=== PATIENT | female | born 1990 | race Caucasian/White ===

== ENCOUNTER 2025-04-23 16:22 | Observation (INO) | payer OTHER ==
[~2025-04-23] VITALS: Ht 165.1 cm; Wt 77.1 kg
[2025-04-23 17:36] LABS: BASOPHILS ABSOLUTE AUTO 0.06 K/mm3 (0.00-0.23); BASOPHILS PERCENT AUTO 1 % (0-2); EOSINOPHILS ABSOLUTE AUTO 0.19 K/mm3 (0.00-0.68); EOSINOPHILS PERCENT AUTO 3 % (0-6); Hematocrit 37.1 % (33.0-51.0); Hemoglobin 12.8 g/dL (11.5-16.0); IMMATURE GRAN ABSOLUTE AUTO 0.01 K/mm3 (0.00-0.10); IMMATURE GRAN PERCENT AUTO 0 % (0-1); LYMPHOCYTES ABSOLUTE AUTO 2.15 K/mm3 (0.84-5.20); LYMPHOCYTES PERCENT AUTO 32 % (21-46); MONOCYTES ABSOLUTE AUTO 0.56 K/mm3 (0.16-1.47); MONOCYTES PERCENT AUTO 8 % (4-13); Mean Corpuscular HGB 30.8 pg (26.0-34.0); Mean Corpuscular HGB Conc 34.5 g/dL (31.5-36.5); Mean Corpuscular Volume 89 fL (80-100); Mean Platelet Volume 10.3 fL (9.1-12.4); NEUTROPHILS ABSOLUTE AUTO 3.68 K/mm3 (1.96-9.15); NEUTROPHILS PERCENT AUTO 55 % (41-73); Platelet Count 235 K/mm3 (150-400); RDW Coefficient Variation 11.7 % (11.7-14.2); RDW Standard Deviation 38.3 fL (35.1-46.3); Red Blood Cell Count 4.15 M/mm3 (3.80-5.20); White Blood Cell Count 6.65 K/mm3 (4.00-11.30)
[2025-04-23 17:57] LABS: Ethanol (Alcohol), Blood, Med <3 mg/dL; Salicylate <1.7 mg/dL (2.8-20.0)
[2025-04-23 17:58] LABS: Alanine Aminotransfer (ALT/SGP 23 U/L (12-78); Albumin/Globulin Ratio 1.1 (0.8-1.8); Alk Phos 73 U/L (50-136); Anion Gap 9 mmol/L (3-11); Aspartate Aminotrans (AST/SGOT 16 U/L (12-37); Bilirubin, Total 0.3 mg/dL (0.1-1.0); Blood Urea Nitrogen 8 mg/dL (8-24); Bun/Creatinine Ratio 12.3 (12.0-20.0); CO2, Blood 26 mmol/L (21-32); Chloride, Blood 107 mmol/L (98-108); Creatinine, Blood 0.65 mg/dL (0.40-1.00); Globulin, Blood 3.6 g/dL (2.2-4.0); Glomerular Filtration Rate 120 (60-); Glucose, Blood 101 mg/dL (70-99); Potassium, Blood 3.6 mmol/L (3.5-5.5); Sodium, Blood 138 mmol/L (136-145); Total Protein, Blood 7.6 g/dL (6.4-8.2)
[2025-04-23 17:59] LABS: Acetaminophen, Random <2.0 ug/mL (10.0-30.0)
[2025-04-23] MEDS ORDERED: ZIPRASIDONE HCL80 MG PO (19:50)
[2025-04-23] MEDS ORDERED: OXCARBAZEPINE PO (19:50)
[2025-04-23] MEDS ORDERED: ESCITALOPRAM OXA5 MG PO (19:51)
[2025-04-23] MEDS ORDERED: KLONOPIN0.5 M9 PO (19:51)
[2025-04-23] MEDS ORDERED: LORA2 PO (19:53)
[2025-04-23 19:58] LABS: Source, Urine Voided
[2025-04-23 20:01] LABS: Bilirubin, Urine Neg (Neg); Blood, Urine 3+ (Neg); Glucose Qualitative, Urine Neg (Neg); Ketones, Urine Neg (Neg); Leukocyte Esterase, Urine 1+ (Neg); Nitrite, Urine Neg (Neg); Protein, Urine 1+ (Neg); Urobilinogen, Urine NORM (Normal)
[2025-04-23 20:02] LABS: Appearance, Urine Clear (Clear); Color, Urine Yellow (P-Yellow)
[2025-04-23 20:08] LABS: Bacteria Mod /hpf; Squamous Epithelial Cells Few /hpf (Few)
[2025-04-23 20:20] LABS: U Amphetamine Screen Not Detected; U Barbituate Screen Not Detected; U Benzodiazapine Screen DETECTED; U Buprenorphine Screen Not Detected; U Cannabinoids Screen DETECTED; U Cocaine Screen Not Detected; U Methadone Screen Not Detected; U Methamphetamine Screen Not Detected; U Opiates Screen Not Detected; U Oxycodone Screen Not Detected; U Phencyclidine Screen Not Detected
[2025-04-23] MEDS ORDERED: Ziprasidone HCL 20 MG Cap PO SCH (21:00)
[2025-04-23] MEDS ORDERED: ClonazePAM 1 MG Tab PO SCH (21:00)
[2025-04-23] MEDS ORDERED: OXcarbazepine 300 MG Tab PO SCH (21:00)
[2025-04-23] MEDS ORDERED: Citalopram Hydrobromide 20 MG Tab PO SCH (21:00)
== END 2025-04-24 13:34 | disposition other institution (70) ==
LOC: ER 16:22 → EOR 16:23
PROVIDERS: Student in an Organized Health Care Education/Training Program; ADMIT Student in an Organized Health Care Education/Training Program
DX: R45.851 Suicidal ideations (principal); R45.850 Homicidal ideations; F17.290 Nicotine dependence, other tobacco product, uncomplicated; Z88.8 Allergy status to other drugs, medicaments and biological substances
CPT/HCPCS: 80053; 80320; 81001; 81025; 85025; 87086; 93005; 93010; 99285-25; A9270; G0378; G0480

== ENCOUNTER 2025-04-24 10:20 | Inpatient (IN) | payer OTHER ==
[~2025-04-24] VITALS: Ht 165.1 cm; Wt 76.9 kg
[~2025-04-24 10:20] MED LIST: ESCITALOPRAM OXA5 MG PO; KLONOPIN0.5 M9 PO; LORA2 PO; OXCARBAZEPINE PO; ZIPRASIDONE HCL80 MG PO
[2025-04-24] MEDS ORDERED: TraZODone HCl 50 MG Tab PO PRN (13:10)
[2025-04-24] MEDS ORDERED: OLANZapine ODT 10 MG Tab MM PRN (13:10)
[2025-04-24] MEDS ORDERED: Ondansetron 4 MG SoluTab MM PRN (13:10)
[2025-04-24] MEDS ORDERED: Polyethylene Glycol 3350 17 gm PO PRN (13:10)
[2025-04-24] MEDS ORDERED: Acetaminophen 325 MG TABLET PO PRN (13:15)
[2025-04-24] MEDS ORDERED: LORazepam 2 MG/ML 1ML Injection IM PRN (13:15)
[2025-04-24] MEDS ORDERED: Aluminum Hydroxide 320MG/5ML 473 ML PO PRN (13:15)
[2025-04-24] MEDS ORDERED: Melatonin 3 MG Tab PO PRN (13:15)
[2025-04-24] MEDS ORDERED: Calcium Carbonate 500 MG Tab Chew PO PRN (13:15)
[2025-04-24] MEDS ORDERED: DiphenhydrAMINE HCl 50 MG Cap PO PRN (13:15)
[2025-04-24] MEDS ORDERED: Haloperidol Lactate Inj. 5 MG/ML Injection IM PRN (13:20)
[2025-04-24] MEDS ORDERED: Ibuprofen 600 MG Tab PO PRN (13:20)
[2025-04-24] MEDS ORDERED: LORazepam 2 MG Tab PO PRN (13:20)
[2025-04-24] MEDS ORDERED: DiphenhydrAMINE HCl 50 MG/ML 1ML Vial IM PRN (13:20)
[2025-04-24] MEDS ORDERED: Haloperidol 5 MG Tab PO PRN (13:20)
[2025-04-24] MEDS ORDERED: HydrOXYzine Pamoate 50 MG Cap PO PRN (13:20)
[2025-04-24 13:51] VITALS: BP 109/59
[2025-04-24 14:52] VITALS: BP 109/59
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
[2025-04-24] MEDS ORDERED: Ziprasidone HCL 20 MG Cap PO SCH (17:12)
[2025-04-24 20:20] VITALS: BP 124/81
[2025-04-24] MEDS ORDERED: ClonazePAM 1 MG Tab PO SCH (21:00)
[2025-04-24] MEDS ORDERED: Citalopram Hydrobromide 10 MG TAB PO SCH (21:00)
[2025-04-24] MEDS ORDERED: OXcarbazepine 300 MG Tab PO SCH (21:00)
--- NOTE | 2025-04-25 04:26 | NUR ---
A&OX4. patient did not come out of her room during the evening or night hours. When asked about current suicidal or homicidal ideation, patient just smiled and denied SI,HI or AVTH. We talked about her medications, and she did seem to have a fair amount of knowledge about several of them. Will continue close monitoring every 15 minutes for safety and comfort
[2025-04-25 07:35] LABS: CHOL/HDL RATIO 5.2; Cholesterol 203 mg/dL (50-200); HDL Cholesterol 39 mg/dL (>39); LDL/HDL RATIO 3.3; Low Density Lipoprotein Chol 127 mg/dL (0-110); Triglycerides 183 mg/dL (30-140); Very Low Density Lipoprot Chol 36 mg/dL (6-28)
[2025-04-25 08:53] VITALS: BP 120/81
[2025-04-25] MEDS ORDERED: Multivitamins 1 Tab PO SCH (09:00)
--- NOTE | 2025-04-25 18:22 | NUR ---
SHIFT SUMMARY PT A/O X4; PLEASANT AND COOPERATIVE WITH CARE. SHE DENIES SI, HI, AND HALLUCINATIONS. HER AFFECT IS INCONGRUENT WITH HER STATED MOOD. PT SMILES OFTEN AND APPEAR CHEERFUL, BUT REPORTS THAT SHE IS DEPRESSED AND ANXIOUS. SHE ATTENDED ALL GROUPS AND MEALS.
[2025-04-25 19:18] VITALS: BP 120/77
--- NOTE | 2025-04-26 04:20 | NUR ---
patient is alert and oriented times four. She stayed in her room prior to HS last night and did not come out for snack. She denied SI,HI and AVH during evening assesment. After patient had smiled and told me she was feeling good, she asked for something for anxiety as she was actually feeling very anxious. As the patient changed from looking very happy to very anxious, Zyprexa was given as she states she is unable to tolerate Vistaril. Will continue close monitoring every 15 minutes for safety and comfort.
--- NOTE | 2025-04-26 17:53 | NUR ---
SHIFT SUMMARY PT A/O X4; DENIES SI, HI, AND HALLUCINATIONS. SHE REPORTS THAT HER INTRUSIVE THOUGHTS HAVE BEEN IMPROVING QUITE A BIT. HER AFFECT REMAINS INCONGRUENT TO HER STATED MOOD. PT IS CONCERNED ABOUT WHEN SHE WILL BE ABLE TO DISCHARGE AND REQUESTED TO LEAVE THIS SHIFT. PROVIDER NOTIFIED. PT WENT TO GO TAKE A NAP AND HAS NOT MENTIONED LEAVING SINCE. SHE ATTENDED ALL GROUPS AND MEALS THIS SHIFT.
[2025-04-26 19:35] VITALS: BP 119/71
--- NOTE | 2025-04-27 04:12 | NUR ---
SHIFT SUMMARY PT LAYING IN BED AWAKE AT START OF SHIFT. SHE DENIES ANY SI, HI, THOUGHTS OF SELF HARM OR HALLUCINATIONS. PT REPORTS AND APPEARS TO BE SAD AND DEPRESSED AND SEEMED TO HAVE A NERVOUS LAUGH WHEN STATING HER MOOD. SHE RATES HER SADNESS/DEPRESSION AT A 6/10 AND STATES AT HOME IT IS USUALLY AN 8/10. SHE SHOWERED BEFORE BED AND DECLINED TO GET UP FOR EVENING SNACK. SHE WAS COMPLIANT WITH MEDICATIONS AND COOPERATIVE WITH CARE. Q15 MINUTE CHECKS TO CONTINUE PER PT SAFETY.
[2025-04-27 08:48] VITALS: BP 113/54
[2025-04-27] MEDS ORDERED: Ziprasidone HCL 20 MG Cap PO SCH ×2 (17:00)
--- NOTE | 2025-04-27 17:53 | NUR ---
SHIFT ASSESSMENT: PT DENIED SI, HI, AVH AND PHYSICAL PAIN. SHE ENDORSED ANXIETY 4/10w. SHE DESCRIBED HER MOOD , "A LITTLE SAD, DEPRESSED AND READY TO GO HOME." SHE SMILED SHE DESCRIBED HER MOOD. HER AFFECT TODAY HAS BEEN ELEVATED. SHE SIGNED THE CIVIL RIGHTS PAPERWORK, SHE SAID SHE WANTED A BRIDGE CONTRACTOR, SEAN WAS NOTIFIED. PT WAS ENCOURAGED TO GO TO GROUPS AND LEARN ALL SHE CAN TO IMPROVE HER MENTAL/EMOTIONAL HEALTH. SHE SPENT PART OF THE AFTERNOON IN BED AND THEN WAS OUT ON THE PATIO WITH A PEER AND SEEMED TO ENJOY HER TIME OUT THERE IN THE SUN. PT HAS BEEN PLEASANT AND COOPERATIVE WITH CARE TODAY.
[2025-04-27 19:36] VITALS: BP 121/82
[2025-04-27] MEDS ORDERED: Citalopram Hydrobromide 20 MG Tab PO SCH (21:00)
--- NOTE | 2025-04-28 04:33 | NUR ---
SHIFT SUMMARY PT LAYING IN BED, AWAKE AT START OF SHIFT. REPORTS HER MOOD SAD AND ANXIOUS. REPORTED MOOD IS INCONGRUENT TO AFFECT, PT IS SMILING. SHE RATES HER SADNESS AT 7-8/10. SHE DENIES ANY SI, HI, THOUGHTS OF SELF HARM OR HALLUCINATIONS. SHE REQUESTED AND RECEIVED PRN HYDROXYZINE FOR MASS SCORE OF 1. SHE WAS PLEASANT AND COMPLIANT WITH EVENING MEDICATIONS. SHE DECLINED TO HAVE EVENING SNACK AND REMAINED IN HER ROOM THROUGHOUT THE NIGHT. Q15 MINUTE CHECKS TO CONTINUE PER PT SAFETY.
[2025-04-28 08:53] VITALS: BP 120/62
--- NOTE | 2025-04-28 10:39 | NUR ---
SHANE faxed request for medical records to [facility] per patient request. Copy of EDWARD placed in patient's chart
--- NOTE | 2025-04-28 15:20 | NUR ---
CPS INFORMATION AND CONTACT INFORMATION: [facility] BRINE TANK TENDER: AGUILA GONSALEZ, AGUILASA FREEMANKAREN SENT AN EMAIL TO THIS RN AND LEFT A MESSAGE REQUESTING A CALL BACK. THIS RN SPOKE WITH AGUILA. STATED THAT THEY HAVE NOT BEEN ABLE TO CONTACT PT'S S/O VIA PHONE NUMBER ON RECORD AND INQUIRED IF ANOTHER NUMBER WAS AVAILABLE. SHE STATED THAT PATIENT COULD CONTACT HER DIRECTLY AT THE ABOVE NUMBER. PT WAS PREVIOUSLY MADE AWARE THAT DUE TO MANDITORY REPORTING STATUS THAT CPS HAS BEEN CONTACTED. THIS RN SPOKE WITH PATIENT REGARDING THE CASE WORKERS OUT REACH. SHE VOLUNTARILY PROVIDED A DIFFERENT NUMBER FOR HER S/O OF [phone] AND GAVE PERMISSION TO THIS RN TO PROVIDE THIS NUMBER TO AGUILA. PT PROVIDED WITH CONACT INFORMATION FOR AGUILA AND LET HER KNOW THAT SHE IS ABLE CONTACT HER IF SHE CHOOSES TO.
--- NOTE | 2025-04-28 17:00 | NUR ---
SHIFT SUMMARY: PT ALERT, ORIENTED AND COOPERATIVE WITH CARE. PT DENIES SI, HI AND AVH. PT WAS PRESENT ON THE UNIT, SPENT TIME ON THE PATIO AND WAS TALKATIVE WITH PEERS. PT COMPLIANT WITH MEDICATIONS. SHE ATTENDED GROUPS AND MEALS. HER FIANCE CAME FOR A VISIT, WHICH APPEARED TO GO WELL.
[2025-04-28 20:58] VITALS: BP 109/68
--- NOTE | 2025-04-29 05:33 | NUR ---
SHIFT SUMMARY PATIENT GOING TO BED AFTER EATING SNACK. VERBALIZED SHE IS FEELING "GOOD" DESPITE EXPRESSING THE SHE IS FEELING "FRUSTRATED. ANXIOUS AND DEPRESSED" ON COMMUNITY WRAP UP. PATIENT DENIES SI, HI, OR AVH. COOPERATIVE WITH PO MEDICATIONS. APPEARS TO BE SLEEPING WELL T/O NIGHT RESP EVEN AND UNLABORED. CONTINUE TO MONITOR Q15MIN
--- NOTE | 2025-04-29 17:58 | NUR ---
SHIFT SUMMARY PT AA&OX4. SHE IS PLEASANT AND COOPERATIVE WITH CARE. SHE REPORTS MOOD GOOD. AFFECT IS CONGRUENT. SHE DOES EXPRESS CONCERN THAT HER DAUGHTERS 8TH GRADE GRADUATION IS TUES AND SHE IS CONCERNED THAT SHE WILL MISS IT. DR. MAURO IS AWARE. SHE HAS BEEN COMPLIANT WITH MEDICATIONS AND DENIES ANY ADVERSE SIDE EFFECTS. SHE DENIES SI, AVH. SPEECH AND EYE CONTACT IS APPROPRIATE. SHE HAS BEEN UP FOR SHOWER, MEALS, AND IS INTERACTING WITH PEERS. WILL CONTINUE POC
[2025-04-29 19:53] VITALS: BP 113/64
--- NOTE | 2025-04-30 04:57 | NUR ---
SHIFT SUMMARY: PATIENT WAS OUT ON THE PATIO AT THE BEGINNING OF THE SHIFT. RN MET HER THERE, AND SHE WAS PLEASANT AND SMILING, TALKING ABOUT HAVING A "GOOD DAY" AND "I HOPE I CAN GET OUT BEFORE MY DAUGHTER'S GRADUATION LIBERTARIAN". SHE WAS TOLD BY RN AND HER PEER THAT EVEN IF SHE DOESN'T, SHE CAN GIVE HER A NICE, PRIVATE CELEBRATION. SHE APPEARED CHEERED UP BY THAT THOUGHT. SHE HAD NO SI, AND DID NOT MENTION HI AT THIS TIME. SHE DENIED A/V HALLUCINATIONS AND THOUGHTS OF SELF HARMING. SHE SPOKE WELL OF THE U, STATING, "I'VE LEARNED A LOT HERE, AND EVERYONE IS SO NICE" BUT "I WANT TO GO HOME. I MISS MY FAMILY." SHE PARTICIPATED IN SNACK AND WRAP UP GROUP IN THE DINING AREA AT 2030, AND WAS COMPLIANT WITH MEDICATION ADMINISTRATION. SHE THEN WENT TO BED WHERE SHE WAS NOTED TO BE RESTING QUIETLY WITH EYES CLOSED AND RESPIRATIONS CONFIRMED FOR THE REMAINDER OF THE SHIFT. CONTINUING TO MONITOR FOR SAFETY WITH Q15 MINUTE CHECKS.
[2025-04-30 07:44] VITALS: BP 126/71
--- NOTE | 2025-04-30 17:32 | NUR ---
SHIFT SUMMARY PT AA&OX4. SHE IS PLEASANT AND COOPERATIVE WITH CARE. SHE IS COMPLIANT WITH MEDICATIONS AND DENIES ADVERSE EFFECTS. SPEECH AND EYE CONTACT APPROPRIATE. PT ABLE TO OPEN UP MORE WITH FLOOR STAFF. SHE IS ENCOURAGED TO DO THE SAME WITH MD. SHE DENIES SI, AVH. SHE REPORTS HI WAS A ONE OFF THAT SHE WOULD NEVER ACT ON IT. SHE HAS BEEN UP FOR MEALS AND GROUP. SHE HAS BEEN IN TV ROOM AND INTERACTING WELL WITH PEERS. WILL CONTINUE POC
[2025-04-30 20:56] VITALS: BP 107/66
--- NOTE | 2025-05-01 04:27 | NUR ---
SHIFT SUMMARY: PATIENT WAS IN HER ROOM RESTING ON HER BED AWAKE AT THE BEGINNING OF THE SHIFT. SHE ALSO SPENT SOME TIME OUT ON THE PATIO WITH PEERS. SHE WAS SMILING AND LAUGHING AND STATED THAT SHE WAS "FINE" AND "I HAD A GOOD DAY". SHE STATED THAT HER FIANCE CAME TO VISIT AND "THAT MADE THE DAY REALLY GOOD". SHE IS ANXIOUS TO DISCHARGE BEFORE HER DAUGHTER'S EIGHTH GRADE GRADUATION [employer] ON 05/02/25. SHE FEELS SHE WILL "BE FINE" AT HER FATHER'S SUICIDE ANNIVERSARY ON 05/03/25 "BECAUSE IT'S WITH ME EVERY DAY ANYWAY". SHE DENIED SI, HI, A/V HALLUCINATIONS AND THOUGHTS OF SELF HARMING. SHE WAS ABLE TO ANSWER ASSESSMENT QUESTIONS IN A LOGICAL AND LINEAR MANNER. SHE PARTICIPATED IN SNACK AND WRAP UP GROUP AT 2030 IN THE DINING AREA. SHE THEN WENT TO HER ROOM WHERE SHE WAS NOTED TO BE RESTING QUIETLY WITH EYES CLOSED AND RESPIRATIONS CONFIRMED FOR THE REMAINDER OF THE SHIFT. CONTINUING TO MONITOR FOR SAFETY WITH Q15 MINUTE CHECKS.
[2025-05-01 08:03] VITALS: BP 113/64
--- NOTE | 2025-05-01 11:49 | NUR ---
IMPORTANT MENTAL HEALTH HOLD APPOINTMENT INFORMATION Patient is scheduled to meet with [facility] crisis team on May 03, 2025 at 1400 // [address], [place] [address] // [phone] SHANE entered appointment information into patient's discharge packet
--- NOTE | 2025-05-01 15:18 | NUR ---
DISCHARGE NOTE PT AxOx4. PLEASANT AND COOPERATIVE WITH CARE. PT IS DISCHARGING HOME TODAY. PT HAS BEEN FOLLOWING TREATMENT PLAN INCLUDING TAKING MEDS PRESCRIBED, ATTENDING ALL [facility] GROUPS AND MINGLING APPROPRIATELY WITH STAFF AND PEERS. SHE DENIES SI/HI AND AVTH THIS AM AND REPORTED HER MOOD "GOOD AND LOOKING FORWARD TO SEEING HER DAUGHTER TODAY." SAFETY PLAN COMPLETED. PT WAS DISCHARGED AT APPROX 1414 TO HER MOTHER, THELMA, WHO ARRIVED TO PICK HER UP. PT WAS SAFELY ESCORTED OUT BY A.
== END 2025-05-01 14:14 | disposition home or self-care (01) | DRG 885 ==
LOC: BHU 10:20
PROVIDERS: ADMIT Psychiatry & Neurology Psychiatry
DX: F33.3 Major depressive disorder, recurrent, severe with psychotic symptoms (principal); R45.851 Suicidal ideations; F17.290 Nicotine dependence, other tobacco product, uncomplicated; F43.25 Adjustment disorder with mixed disturbance of emotions and conduct; Z91.51 Personal history of suicidal behavior; Z79.899 Other long term (current) drug therapy; Z79.1 Long term (current) use of non-steroidal anti-inflammatories (NSAID)
CPT/HCPCS: 36415; 80061; 83036; A9270